=== PATIENT | female | born 1955 | race Caucasian/White ===

== ENCOUNTER 2016-06-28 12:06 | Inpatient (IN) | payer MEDICARE, OTHER ==
[~2016-06-28] VITALS: Ht 160 cm; Wt 84.0 kg
[~2016-06-28 12:06] MED LIST: ASPI81TA3 PO; CYCL-319 PO; HYDR-3498 PO; HYDR25SU23 PR; LORA-408 PO; LORA-52 PO; METR500T14 PO; OLAN20TA3 PO; OMEP20CA16 PO; RISP3TAB25 PO; SUCR1TAB56 PO; UDTYLC PO; VALP250C44 PO; ZOLP10TA PO
[2016-06-28] MEDS ORDERED: KETOROLAC 60 MG INJ IM STA (12:21)
[2016-06-28] MEDS ORDERED: ACET-2047 PO (12:43)
[2016-06-28] MEDS ORDERED: CLOT30CR35 TOP (12:44)
[2016-06-28] MEDS ORDERED: ASCO500C7 PO (12:45)
[2016-06-28] MEDS ORDERED: CALC-74 PO (12:45)
[2016-06-28] MEDS ORDERED: LACT20SO2 PO (12:47)
[2016-06-28] MEDS ORDERED: FLUO60OI5 TOP (12:48)
[2016-06-28] MEDS ORDERED: ACETAMINOPHEN 325 MG TAB PO PRN ×3 (13:00→16:30)
[2016-06-28] MEDS ORDERED: KETOROLAC 30 MG INJ IV PRN (13:00)
[2016-06-28] MEDS ORDERED: ONDANSETRON 4 MG INJ IV PRN ×2 (13:00→16:30)
[2016-06-28 13:33] LABS: BASOPHILS % 0.4 % (0.0-2.0); EOSINOPHILS # 0.2 10^3/ul (0.0-0.5); EOSINOPHILS % 1.7 % (0.0-7.0); HEMATOCRIT 38.6 % (37.0-47.0); LYMPHOCYTES # 2.3 10^3/ul (0.8-2.9); LYMPHOCYTES % 22.9 % (15.0-51.0); MEAN CORPUSCULAR HGB CONC 33.7 g/dl (32.0-37.0); MEAN PLATELET VOLUME 7.4 fl (7.4-10.4); MONOCYTE # 0.9 10^3/ul (0.3-0.9); NEUTROPHIL # 6.6 10^3/ul (1.6-7.5); PLATELET COUNT 348 10^3/UL (140-440); RED BLOOD COUNT 4.34 10^6/ul (4.20-5.40); RED CELL DISTRIBUTION WIDTH 13.1 % (11.5-14.5); UNCORRECTED WBC 9.9 10^3/ul (4.8-10.8); WHITE BLOOD COUNT 9.9 10^3/ul (4.8-10.8)
--- NOTE | 2016-06-28 13:33 | RADRPT ---
PROCEDURE: XR right knee. CLINICAL INDICATION: Knee pain TECHNIQUE: Three views are available for review. COMPARISON: None available FINDINGS: There is mild osteoarthrosis involving the patellofemoral compartment. This is associated with osteo phytosis. The osseous structures are otherwise normal in mineralization, architecture and alignment. No fract ures are identified. No osseous lesions are identified. The soft tissues are unremarkable. IMPRESSION: Mild osteoarthrosis involving the patellofemoral compartment. RPTAT: [facility] .Sukhjinder Santana MD, MD Date Time Electronically viewed and signed by .Sukhjinder Santana MD, on 06/28/2016 13:32 .B/
[2016-06-28 13:34] LABS: CONDITION 1; POTASSIUM 4.3 mmol/L (3.5-5.1)
[2016-06-28 13:35] LABS: PROTIME 13.2 Sec (12.2-14.2)
[2016-06-28 13:36] LABS: BILIRUBIN,INDIRECT 0.1 mg/dl (0-1.1); BILIRUBIN,TOTAL 0.1 mg/dl (0.2-1.3); CREATININE 0.58 mg/dl (0.44-1.00); PARTIAL THROMBOPLASTIN TIME 36.5 Sec (25.0-35.0)
[2016-06-28 13:37] LABS: ALBUMIN/GLOBULIN RATIO 1.14; CALCIUM 10.2 mg/dl (8.4-10.2); TOTAL PROTEIN 7.5 g/dl (6.1-8.1)
[2016-06-28 14:09] VITALS: TEMP 98.1
[2016-06-28 15:00] VITALS: BP 134/86; PULSE 86; RESP 16; Ht 160 cm; Wt 84.0 kg
[2016-06-28] MEDS ORDERED: DOCUSATE SODIUM 100 MG CAP PO PRN (16:30)
[2016-06-28] MEDS ORDERED: MAGNESIUM HYDROXIDE 30ML CUP PO PRN (16:30)
[2016-06-28] MEDS ORDERED: NACL 0.9% 3 ML SYG IV SCH (16:30)
[2016-06-28] MEDS ORDERED: ZOLPIDEM 5 MG TAB PO PRN (16:30)
--- NOTE | 2016-06-28 16:59 | ERA ---
ER Documentation Chief Complaint Date/Time DATE: 06/28/16 TIME: 16:53 Chief Complaint weakness sent by dr alexandre for eval HPI 60-year-old female with a history of bipolar disorder and arthritis sent by Dr. Alexandre for evaluation of right knee pain. Patient lives at a shelter home and she has been unable to walk secondary to her knee pain for several days. She even had to urinate in her bed because she could not walk. At her shelter home, there is no [place] [facility] and they are unable to take care of her. About 1 week ago, she was doing a lot of walking after which her right knee pain started. She has also noticed some swelling. No numbness or tingling in her right lower extremity. No associated fevers or chills. No active hallucinations or suicidal or homicidal ideations ROS All systems reviewed and are negative except as per history of present illness. Medications Home Meds Reported Medications Fluocinonide* (Fluocinonide* Oint) 0.05%-60 Gm Oint..gm., 1 APPLIC TOP DAILY, EA 06/28/16 Lactulose* (Lactulose*) 20 Gm/30 Ml Solution, 20 GM PO BID, ML 06/28/16 Calcium Carbonate-Vit D3-Minerals (Calcium 600 + D + Minerals) 1 Each Tablet, 1 TAB PO BID, TAB 06/28/16 Ascorbic Acid* (Vitamin C*) 500 Mg Capsule.sa, 500 MG PO BID, CAP 06/28/16 Clotrimazole* (Lotrimin*) 1%-30 Gm Cream..g., 1 APPLIC TOP QAM, TUB 06/28/16 Acetaminophen* (Acetaminophen*) 650 Mg Tablet, 650 MG PO Q6H Y for PAIN AND OR ELEVATED TEMP, #30 TAB 06/28/16 Sucralfate* (Carafate*) 1 Gm Tab, 1 GM PO AC MEALS, TAB 03/06/15 Aspirin* (Aspirin* Chew) 81 Mg Tab.chew, 81 MG PO DAILY, TAB.CHEW 03/06/15 Zolpidem Tartrate* (Ambien*) 10 Mg Tablet, 10 MG PO QHS 03/22/12 Loratadine (Alavert) 10 Mg Tablet, 10 MG PO DAILY 03/22/12 Risperidone* (Risperdal*) 3 Mg Tablet, 3 MG PO BID 03/22/12 Olanzapine* (Zyprexa*) 20 Mg Tablet, 20 MG PO QHS 03/22/12 Valproic Acid* (Depakene*) 250 Mg Capsr, 250 MG PO BID 03/22/12 Omeprazole* (Omeprazole*) 20 Mg Capsule.dr, 20 MG PO DAILY 03/22/12 Lorazepam (Ativan) 1 Mg Tablet, 1 MG PO BID 03/22/12 Discontinued Scripts Metronidazole* (Flagyl*) 15 Mg/Ml (Compounded) Susp, 500 MG PO Q8 for 5 Days, BOTTLE Prov:BK ROMERO DO 04/22/16 Hydrocortisone Acetate (Anusol-Hc) 25 Mg Supp.rect, 25 MG NH BID Y for PAIN, # 14 SUPP.RECT Prov:BK ROMERO DO 04/22/16 Acetaminophen-Codeine* (Tylenol-Codeine* Liq) [id number] Elix, 5 ML PO Q6H Y for PAIN, #4 OZ Prov:BEAU MODI 03/06/15 Cyclobenzaprine Hcl* (Cyclobenzaprine Hcl*) 10 Mg Tablet, 10 MG PO TID, #10 TAB Prov:BEAU MODI 03/06/15 Hydrocodone Bit-Acetaminophen* (Stopover*) 5-325 Mg Tab, 1 TAB PO Q6 Y for PAIN, # 20 TAB Prov:BEAU MODI 03/06/15 Allergies Allergies: Coded Allergies: Penicillins (Verified Allergy, Mild, SICK, 06/28/16) Sulfa (Sulfonamide Antibiotics) (Verified Allergy, Mild, RASH, 06/28/16) Uncoded Allergies: "TOILETRIES" (Allergy, Unknown, 01/02/14) CHOCOLATE (Allergy, Unknown, RASH, 01/02/14) COSMETICS (Allergy, Unknown, 01/02/14) PEANUTS (Allergy, Unknown, RASH, 01/02/14) SHRIMP (Allergy, Unknown, RASH, 01/02/14) STRAWBERRIES (Allergy, Unknown, RASH, 01/02/14) PMhx/Soc History of Surgery: Yes Anesthesia Reaction: No Hx Neurological Disorder: No Hx Cardiac Disorders: Yes (CHEST PAIN) Hx Psychiatric Problems: No Hx Miscellaneous Medical Probl: Yes (CHOLECYSTECTOMY, TUBAL LIGATION) Hx Alcohol Use: No Hx Substance Use: No Hx Tobacco Use: No Smoking Status: Never smoker FmHx Family History: No diabetes Physical Exam Vitals Vital Signs Date Time Temp Pulse Resp B/P Pulse Ox O2 Delivery O2 Flow Rate FiO2 06/28/16 14:09 98.1 86 16 127/54 100 Room Air 06/28/16 13:16 98.0 87 18 138/78 97 Physical Exam Const: Well-appearing, well-nourished, no apparent distress, nontoxic Head: Atraumatic Eyes: Normal Conjunctiva ENT: Normal External Ears, Nose and Mouth. Neck: Full range of motion. No meningismus. Resp: Clear to auscultation bilaterally Cardio: Regular rate and rhythm, no murmurs Abd: Soft, non tender, non distended. Normal bowel sounds Skin: No petechiae or rashes Back: No midline or flank tenderness Ext: Lower Extremity - bilateral: No edema, no deformities Right lower extremity: Skin: No laceration Compartments: Soft Motor: Full active range of motion hip/knee/ankle/foot without pain Sensation: Intact to light touch FDWS/MF/LF/P surfaces. Bones: Nontender pelvis/knee/proximal tibia/ malleoli/foot Joints: Right knee effusion, no overlying erythema or warmth Pulses/Perfusion: 2+ DP, Capillary refill < 2 seconds Neur: Awake and alert and oriented 3, strength and sensations intact in all 4 extremities Psych: Normal Mood and Affect Result Diagram: 06/28/16 1315 06/28/16 1315 Results 24 hrs Laboratory Tests Test 06/28/16 13:15 Activated Partial Thromboplast Time 36.5Sec Alanine Aminotransferase (ALT/SGPT) 16IU/L Albumin 4.0g/dl Albumin/Globulin Ratio 1.14 Alkaline Phosphatase 77IU/L Anion Gap 18 Aspartate Amino Transf (AST/SGOT) 17IU/L Basophils # 0.010^3/ul Basophils % 0.4% Blood Urea Nitrogen 12mg/dl Calcium Level 10.2mg/dl Carbon Dioxide Level 30mmol/L Chloride Level 101mmol/L Creatinine 0.58mg/dl Direct Bilirubin 0.00mg/dl Eosinophils # 0.210^3/ul Eosinophils % 1.7% Globulin 3.50g/dl Glucose Level 91mg/dl Hematocrit 38.6% Hemoglobin 13.0g/dl INR International Normalized Ratio 1.00 Indirect Bilirubin 0.1mg/dl Lymphocytes # 2.310^3/ul Lymphocytes % 22.9% Mean Corpuscular Hemoglobin 30.0pg Mean Corpuscular Hemoglobin Concent 33.7g/dl Mean Corpuscular Volume 89.0fl Mean Platelet Volume 7.4fl Monocytes # 0.910^3/ul Monocytes % 9.0% Neutrophils # 6.610^3/ul Neutrophils % 66.0% Nucleated Red Blood Cells # 0.010^3/ul Nucleated Red Blood Cells % 0.0/100WBC Platelet Count 06305^3/UL Potassium Level 4.3mmol/L Prothrombin Time 13.2Sec Prothrombin Time Ratio 1.0 Red Blood Count 4.3410^6/ul Red Cell Distribution Width 13.1% Sodium Level 145mmol/L Total Bilirubin 0.1mg/dl Total Protein 7.5g/dl White Blood Count 9.910^3/ul Current Medications Medications (Trade) Dose Ordered Sig/Jose Route PRN Reason Start Time Stop Time Status Last Admin Dose Admin Ketorolac Tromethamine (Toradol) 60 mg ONCE STAT IM 06/28/16 12:21 06/28/16 12:23 DC 06/28/16 13:14 Ketorolac Tromethamine (Toradol) 30 mg ER BRIDGE PRN IV PAIN 06/28/16 13:00 06/29/16 12:59 Ondansetron HCl (Zofran Inj) 4 mg BRIDGE ORDER PRN IV NAUSEA AND/OR VOMITING 06/28/16 13:00 06/29/16 12:59 Acetaminophen (Tylenol Tab) 650 mg ER BRIDGE PRN PO MILD PAIN/FEVER 06/28/16 13:00 06/29/16 12:59 Procedures/MDM Patient is presenting with right knee pain and difficulty walking secondary to her pain. Where she is currently living they are unable to take care of her and the patient does not feel she could take care of herself. Her vitals are stable and I do not suspect septic joint. Her knee x-ray showed Mild osteoarthrosis involving the patellofemoral compartment. Toradol was given for pain. Basic labs were drawn and unremarkable. I spoke with Dr. Alexandre, her primary care physician, who would like to admit her for further workup by orthopedics and possible placement in rehab. Departure Diagnosis: Primary Impression: Pain and swelling of right knee Condition: Stable BING GARCIA MD Jun 28, 2016 16:59
--- NOTE | 2016-06-28 17:19 | HP ---
DATE OF ADMISSION: 06/28/2016 REASON FOR ADMISSION: Intractable right knee pain, difficult to ambulate for 1 week, acute psychosi s. HISTORY OF PRESENT ILLNESS: The patient is a 60-year-old female with history of bipolar d isorder, paranoia, angina, obesity, and gastritis who currently resides at [facility]. The patient stated that in the past week she has been having difficulty with ambulatio n as she has been experiencing severe right knee pain. The patient's pain has severe enough for her to request to go to the ER. Upon evaluation in the ER, the patient underwent an x-ray of the right knee which showed mild osteoarthrosis involving the patellofemoral compartment. She was noticed to have swelling of the knee as well. In addition, the facility reported the patient was not acting l kim herself recently, concerning for worsening or decompensating psychiatric disorder. Ultimately, it was decided to admit the patient for further evaluation and control her pain. The patient otherw ise denies any headaches or blurry vision. She denies any chest pain or shortness of breath. Denie s any one-sided weakness. Denies any numbness. She did report weight loss of about 50 pounds, but she says she has been trying to lose weight to look better. Overall, the patient may be an unreliab le historian, but she was able to answer my questions. PAST MEDICAL HISTORY: Bipolar disorder, paranoia, questionable paranoid schizophrenia, angina, adolph ritis. ALLERGIES: 1. PENICILLIN. 2. SULFA. CAUSES A RASH. SOCIAL HISTORY: The patient is single. She has no kids. FAMILY HISTORY: She was adopted when she was very young, when she was a baby, so she talked to me a bout her adopted parents who 8 years ago, a few days apart. She does not know her biological p arents. SURGICAL HISTORY: Includes hemorrhoidectomy, hernia repair surgery, cholecystectomy, tubal ligation , and . She was briefly on hemodialysis and had an AV shunt for 2 months when she was 19 ye ars old. SOCIAL HISTORY: Alcohol denies, only in her teens. Tobacco and IV drug abuse denies. SCREENING: The patient's last colonoscopy was about 2 years ago which was normal. Mammogram: She does that yearly. MEDICATIONS: The patient's medications include the followin. Loratadine 10 mg daily. 2. Tylenol 650 q. 6 p.r.n. 3. Aspirin 81 mg daily. 4. Ativan 1 mg b.i.d. 5. Zyprexa 20 mg at bedtime. 6. Risperdal 3 mg b.i.d. 7. Depakote 250 b.i.d. 8. Ambien 10 mg at bedtime. 9. Calcium plus D 600 b.i.d. 10. Lactulose b.i.d. 11. Omeprazole 20 mg daily. 12. Carafate 1 gram q. a.c. meals. 13. cream as directed. 14. Fluocinonide cream topically as directed. 15. Vitamin C 500 mg b.i.d. PHYSICAL EXAMINATION: VITAL SIGNS: Temperature is 98.1, pulse 86, respirations 16, blood pressure 127/54, saturation is 1 00% on room air. GENERAL: The patient is in no acute distress, obese. The patient is slightly pale. CARDIOVASCULAR: S1 and S2, regular rate. LUNGS: Clear bilaterally. ABDOMEN: Soft, nontender. EXTREMITIES: Showed large legs. There is definitely some swelling on the right knee, slight decrea sed range of motion secondary to pain, able to flex it up to 75 degrees, and then the pain is quite severe in the right knee. Slight guarding when I tried to move her right knee. LABORATORY DATA: White count is 9.9, hemoglobin 13, hematocrit 39, platelet count 348, neutrophils 66%, lymphocytes 23%. Chemistry: Sodium is 145, potassium 4.3, chloride 101, bicarbonate 30, BUN i s 12, creatinine 0.58, glucose of 91, AST 17, ALT 16, alkaline phosphatase 77, albumin 4.0. INR is 1.0. IMAGING: A right knee x-ray shows only mild osteoarthrosis involving the patellofemoral compartment . EKG: Not done. ASSESSMENT AND PLAN: This is a very unfortunate 60-year-old obese female with history of extensive psychiatric disorder who presents with right knee pain, difficult to ambulate, and also ch kell in mental condition. 1. Right knee pain, questionable osteoarthritis with questionable exacerbation. Pain medication wi ll be provided. We will consult orthopedics for possible steroid injection if needed. We will prov teagan with physical therapy. 2. Acute exacerbation of psychiatric disorder. Continue all psych meds. We will obtain a UA and u rine culture to rule out infectious process. Monitor patient's mood. 3. History of angina. We will obtain a baseline EKG. Currently, chest pain-free. The patient is on aspirin for cardiac protection. 4. The patient will be placed on deep vein thrombosis prophylaxis and gastrointestinal prophylaxis. 5. Age appropriate cancer screening. It seems like the patient is up to date. We will follow. Dictated By: CARTER WILLETT/MENDEL Conf#: [id number] DID#: [id number]
[2016-06-28] MEDS: SUCRALFATE 1 GM TAB PO SCH (17:29)
[2016-06-28] MEDS ORDERED: BETAMET NA PHOS/AC(6 MG/ML) 5ML INJ IM ONE (18:30)
[2016-06-28] MEDS ORDERED: BUPIVACAINE 0.5% (MPF) 10 ML VIAL INJ ONE (18:30)
[2016-06-28 19:29] VITALS: BP 144/67; RESP 20
[2016-06-28] MEDS: VALPROIC ACID 250 MG CAP PO SCH ×2 (21:00→21:03)
[2016-06-28] MEDS: RISPERIDONE 1 MG TAB PO SCH (21:03)
[2016-06-28] MEDS: ASCORBIC ACID 500 MG TAB PO SCH (21:03)
[2016-06-28] MEDS: LORAZEPAM 1 MG TAB PO SCH (21:03)
[2016-06-28] MEDS: OLANZAPINE 5 MG TAB PO SCH (21:04)
[2016-06-28] MEDS: VALPROIC ACID LIQUID CUP 250 MG/5 ML CUP PO SCH (22:40)
[2016-06-28] MEDS: morphine 2 MG INJ IV PRN (23:07)
[2016-06-29 01:48] LABS: ADD UMIC YES; URINE BILIRUBIN (Dip) NEGATIVE (NEGATIVE); URINE BLOOD (Dip) NEGATIVE (NEGATIVE); URINE COLOR LT. YELLOW (YELLOW); URINE GLUCOSE (Dip) NEGATIVE (NEGATIVE); URINE KETONES (Dip) NEGATIVE (NEGATIVE); URINE LEUKOCYTE ESTERASE (Dip) TRACE (NEGATIVE); URINE NITRITE (Dip) NEGATIVE (NEGATIVE); URINE TOTAL PROTEIN (Dip) NEGATIVE (NEGATIVE); URINE UROBILINOGEN (Dip) 0.2 E.U./dL (0.1-1.0)
[2016-06-29 02:00] LABS: BACTERIA,URINE FEW; SQUAMOUS EPITHELIAL CELL,UR FEW; URINE RBCS 0-2 /HPF (0)
[2016-06-29 06:41] LABS: ALBUMIN 3.3 g/dl (3.3-4.9)
[2016-06-29 06:42] LABS: POTASSIUM 4.1 mmol/L (3.5-5.1)
[2016-06-29 06:44] LABS: ALBUMIN/GLOBULIN RATIO 1.1; BILIRUBIN,INDIRECT 0.1 mg/dl (0-1.1); BILIRUBIN,TOTAL 0.1 mg/dl (0.2-1.3); CREATININE 0.65 mg/dl (0.44-1.00); TOTAL PROTEIN 6.3 g/dl (6.1-8.1)
[2016-06-29 06:45] LABS: CALCIUM 9.5 mg/dl (8.4-10.2); MAGNESIUM 1.7 mg/dl (1.7-2.5)
[2016-06-29 07:10] LABS: THYROID STIMULATING HORMONE 2.46 MIU/L (0.465-4.680)
[2016-06-29 07:18] LABS: BASOPHIL # 0.1 10^3/ul (0.0-0.1); BASOPHILS % 0.6 % (0.0-2.0); EOSINOPHILS # 0.2 10^3/ul (0.0-0.5); EOSINOPHILS % 2.6 % (0.0-7.0); HEMATOCRIT 32.9 % (37.0-47.0); HEMOGLOBIN 11.3 g/dl (12.0-16.0); LYMPHOCYTES % 34.5 % (15.0-51.0); MEAN CORPUSCULAR HEMOGLOBIN 30.5 pg (29.0-33.0); MEAN CORPUSCULAR HGB CONC 34.2 g/dl (32.0-37.0); MEAN CORPUSCULAR VOLUME 89.2 fl (82.0-101.0); MEAN PLATELET VOLUME 7.5 fl (7.4-10.4); MONOCYTE # 0.9 10^3/ul (0.3-0.9); MONOCYTES % 10.4 % (0.0-11.0); NEUTROPHIL # 4.5 10^3/ul (1.6-7.5); NEUTROPHILS % 51.9 % (39.0-77.0); PLATELET COUNT 339 10^3/UL (140-440); RED BLOOD COUNT 3.69 10^6/ul (4.20-5.40); RED CELL DISTRIBUTION WIDTH 13.4 % (11.5-14.5); UNCORRECTED WBC 8.6 10^3/ul (4.8-10.8); WHITE BLOOD COUNT 8.6 10^3/ul (4.8-10.8)
--- NOTE | 2016-06-29 07:22 | RADRPT ---
PROCEDURE: XR Chest. CLINICAL INDICATION: Weight loss TECHNIQUE: An AP view of the chest was obtained. COMPARISON: Chest x-ray dated 01/02/2014 FINDINGS: There is prominence of the interstitial markings. No pleural effusion or pneumothorax is seen. Th e cardiomediastinal silhouette is mildly enlarged . The osseous structures demonstrate senescent changes. IMPRESSION: 1. Mild prominence of the interstitial markings, may reflect mild underlying interstitial edema or chronic lung changes. 2. Mild cardiomegaly. RPTAT: HH .Tanesha Queen MD, MD Date Time Electronically viewed and signed by .Tanesha Queen MD, MD on 06/29/2016 07:22 .G/
[2016-06-29] MEDS: PANTOPRAZOLE (EC) 40 MG TAB PO SCH (07:52)
[2016-06-29 08:00] LABS: CONDITION 1
[2016-06-29 08:07] VITALS: BP 123/57; RESP 16
[2016-06-29] MEDS: VALPROIC ACID LIQUID CUP 250 MG/5 ML CUP PO SCH ×2 (08:56→21:02)
[2016-06-29] MEDS: ASPIRIN 81 MG TAB PO SCH (08:57)
[2016-06-29] MEDS: LORATADINE 10 MG TAB PO SCH (08:57)
[2016-06-29] MEDS: RISPERIDONE 1 MG TAB PO SCH ×2 (08:57→21:01)
[2016-06-29] MEDS: ASCORBIC ACID 500 MG TAB PO SCH ×2 (08:58→21:01)
[2016-06-29] MEDS: LORAZEPAM 1 MG TAB PO SCH ×2 (08:58→21:01)
[2016-06-29] MEDS: SUCRALFATE 1 GM TAB PO SCH ×3 (08:58→17:34)
[2016-06-29] MEDS: ENOXAPARIN 40 MG/0.4 ML SYG SC SCH (09:00)
[2016-06-29] MEDS: HYDROCODONE/APAP (5/325) TAB PO PRN ×2 (09:46→22:37)
[2016-06-29] MEDS ORDERED: PROPYLENE GLYCOL/PEG 15 ML OPH BOTH EYES PRN (11:30)
--- NOTE | 2016-06-29 11:48 | RADRPT ---
Vent Rate: 80 bpm RR Interval: 0 msec OH Interval: 174 msec QRS Duration: 138 msec QT Interval: 418 msec QTC Interval: 482 msec P-R-T [place]: 64 - 70 - 43 degrees Normal sinus rhythm Right bundle branch block Abnormal ECG Electronically Signed By: Alonzo Whitehead [id number]
[2016-06-29] MEDS ORDERED: BIOTENE MOUTH SPRAY PO PRN (13:00)
--- NOTE | 2016-06-29 13:19 | PN ---
DATE: 06/29/2016 SUBJECTIVE: Patient seen, appears anxious, hyperverbal, asking for dry mouth and dry eye drops. Sh lynne is still complaining of pain in the right knee. She says now the pain also is in the left knee, b ut not as severe. I appreciate Dr. Polanco's input as patient to undergo intra-articular injection of s teroids. The patient is concerned about her ability to ambulate because of pain. PHYSICAL EXAMINATION: VITAL SIGNS: Temperature 97.7, pulse 71, respirations 16, blood pressure 123/57, saturation 92% to 96% on room air. GENERAL: The patient is in no acute distress. HEENT: Normocephalic, atraumatic, pale. Dry mucous membranes. CARDIOVASCULAR: S1, S2, regular rate. LUNGS: Clear. ABDOMEN: Soft, nontender. EXTREMITIES: Positive pain upon flexion of the right knee, mild discomfort upon flexion of the left knee. Slight swelling of the right knee compared to the left. LABORATORY DATA: Sodium is 137, potassium 4.1, chloride 97, bicarbonate 30, BUN is 18, creatinine 0 .65, glucose of 86. LFTs are all normal. B12 of 47. TSH 2.46. White count is 8.6, hemoglobin daniel t down to 11.3, hematocrit 33, platelets 339, neutrophils 52%, lymphocytes 35%. INR is 1.0, trace l eukocyte esterase was noted WBC 0 to 2. Chest x-ray shows mild prominence of interstitial markings may reflect interstitial edema, paralegal instructor nadine lung changes versus mild cardiomegaly. Knee x-ray shows mild osteoarthritis involving the gallo lofemoral compartment. MEDICATIONS: 1. Aspirin 81 mg daily. 2. Claritin 10 mg daily. 3. Lovenox 40 mg subq every day. 4. Protonix 40 mg daily. 5. Depakote 250 b.i.d. 6. Vitamin C 500 mg b.i.d. 7. Ativan 1 mg t.i.d. 8. Zyprexa 20 at bedtime. 9. Risperdal 2 mg b.i.d. 10. Carafate 1 gram q.a.c. meals. 11. Zofran p.r.n. 12. Tylenol p.r.n. 13. [place] p.r.n. 14. Morphine p.r.n. 15. Colace p.r.n. 21. Milk of magnesia p.r.n. 22. Ambien p.r.n. ASSESSMENT AND PLAN: This is a 60-year-old obese female with history of extensive psychia tric disorder, presents with right knee pain, difficult to ambulate also increase mild confusion an d increased anxiety. 1. Right knee pain, likely from osteoarthritis, possible exacerbation. Dr. Polanco was consulted. In the meantime, continue pain medication. The patient likely to undergo steroid injection. May benef it from a brace as well. Physical therapy to evaluate. 2. Acute exacerbation of psychiatric disorder, on the above medications. Definitely would like her to see a psychiatrist. Urinalysis overall unremarkable. Continue to monitor mood. 3. History of angina. EKG shows normal sinus rhythm with right bundle branch block at 80 beats a m inute. Would continue with aspiration. The patient is chest pain free. We will monitor. 4. Continue deep vein thrombosis prophylaxis and gastrointestinal prophylaxis. 5. We will follow. Dictated By: CARTER WILLETT/MENDEL Conf#: [id number] DID#: [id number]
--- NOTE | 2016-06-29 15:49 | CONS ---
DATE OF ADMISSION: 06/28/2016 DATE OF CONSULTATION: 06/29/2016 TYPE OF CONSULTATION: Orthopedic surgical. HISTORY OF PRESENT ILLNESS: The patient is a 60-year-old female, a resident of a [facility] living facility with a known history of bipolar disorder and paranoid schizophrenia who was admit jojo on 06/28/2016 when she was brought into the emergency room complaining of painful limit of motio n involving her right knee. On inquiring, she developed pain and limit of motion of right knee after excessive walk for hospital visit about 2 weeks ago. She claims that she was walking about a mile each time on several occasio ns for the hospital visit when she developed this pain. On further inquiring, she claims that she h as been having some pain involving various parts of her body including right knee starting from abou t 2 years ago. PHYSICAL EXAMINATION: My examination revealed a 60-year-old female who is somewhat obese. There wa s a mild effusion involving the right knee, and there was a mild limit of motion with pain during th e attempted range of motion. She was having tenderness along the joint line and peripatellar area. There were no gross instabilities. There were no signs of any pyogenic process. IMAGING: X-rays of the right knee revealed the presence of mild degenerative changes involving all 3 compartments including patellofemoral joint. DIAGNOSTIC IMPRESSION: Degenerative osteoarthritis of the right knee, mild, with symptomatic exacer bation following excessive walking. RECOMMENDATIONS FOR MANAGEMENT: 1. Trial of steroid injection into the right knee, and this was done at the end of my consultation. 2. Ambulation as tolerated with weightbearing as tolerated. 3. Okay to be discharged from orthopedic surgical point of view if there is symptomatic relief foll owing the intra-articular injection of steroid. Dictated By: ROSALBA CHADWICK/MENDEL Conf#: [id number] DID#: [id number]
[2016-06-29 20:05] VITALS: BP 135/77; RESP 20
[2016-06-29] MEDS: OLANZAPINE 5 MG TAB PO SCH (21:02)
[2016-06-30] MEDS: HYDROCODONE/APAP (5/325) TAB PO PRN ×3 (05:48→23:21)
[2016-06-30] MEDS: PANTOPRAZOLE (EC) 40 MG TAB PO SCH (05:48)
[2016-06-30 07:29] VITALS: BP 145/58; RESP 18
[2016-06-30] MEDS: VALPROIC ACID LIQUID CUP 250 MG/5 ML CUP PO SCH ×2 (08:45→21:16)
[2016-06-30] MEDS: SUCRALFATE 1 GM TAB PO SCH ×3 (08:45→16:56)
[2016-06-30] MEDS: ASPIRIN 81 MG TAB PO SCH (08:45)
[2016-06-30] MEDS: LORATADINE 10 MG TAB PO SCH (08:45)
[2016-06-30] MEDS: ASCORBIC ACID 500 MG TAB PO SCH ×2 (08:45→21:16)
[2016-06-30] MEDS: LORAZEPAM 1 MG TAB PO SCH ×2 (08:45→21:16)
[2016-06-30] MEDS: RISPERIDONE 1 MG TAB PO SCH ×2 (08:45→21:16)
[2016-06-30] MEDS: ENOXAPARIN 40 MG/0.4 ML SYG SC SCH (08:49)
--- NOTE | 2016-06-30 14:13 | PN ---
DATE: 06/30/2016 SUBJECTIVE: Patient seen, doing better after she had injection to the right knee yesterday by Dr. Weston Polanco. She states the swelling is subsiding and she is now able to go the bathroom. PHYSICAL EXAMINATION: VITAL SIGNS: Temperature 97.2, heart rate is slightly high at 102, respirations 18, blood pressure 145/58, saturation 92%. GENERAL: No acute distress. HEENT: Normocephalic, atraumatic. CARDIOVASCULAR: Positive S1 and S2, regular rate. LUNGS: Clear. ABDOMEN: Soft, nontender. EXTREMITIES: Increased range of motion to the right knee and the pain is better. LABORATORY DATA: White count is 8.6, hemoglobin 11.3, hematocrit 33, that was yesterday. Urine cul ture shows mixed gram-positive organism greater than 100,000. MEDICATIONS: Include: 1. Systane eyedrops as directed for dry eyes. 2. Aspirin 81 mg daily. 3. Claritin 10 mg daily. 4. Lovenox 40 mg subcutaneous daily. 5. Protonix 40 mg daily. 6. Depakote 250 b.i.d. 7. Vitamin C 500 mg b.i.d. 8. Ativan 1 mg b.i.d. 9. Zyprexa 20 at bedtime. 10. Risperdal 3 mg b.i.d. 11. Carafate 1 gram q.a.c. meals. 12. Zofran p.r.n. 13. Tylenol p.r.n. 14. [place] p.r.n. 15. Morphine p.r.n. 16. Colace p.r.n. 17. Milk of magnesia. 18. Ambien p.r.n. ASSESSMENT AND PLAN: This is a 60-year-old obese female with history of extensive psychiatric disorder, present s with right knee pain, difficult to ambulate, also increased confusion and anxiety. 1. Right knee pain, likely exacerbation of her arthritis. Responded well to steroid injection. Wo uld advise her to take it easy with long walks. She will benefit from physical therapy and weight l oss, and possible knee brace. 2. Psychiatric disorder with mild exacerbation. The patient is very hyperverbal, speaks tangential ly about many issues which are not related to my questioning. Continue above psych medications. We will refer her to an outpatient psychiatrist to assist and adjust her medications. 3. History of angina, chest pain free. 4. Continue deep vein thrombosis prophylaxis and gastrointestinal prophylaxis. 5. Disposition in the a.m. to group home facility for physical therapy and psychiatry followup . We will follow. Dictated By: CARTER WILLETT/MENDEL Conf#: [id number] DID#: [id number]
[2016-06-30 19:25] VITALS: BP 131/61; RESP 20
[2016-06-30] MEDS: OLANZAPINE 5 MG TAB PO SCH (21:16)
[2016-07-01] MEDS: morphine 2 MG INJ IV PRN (02:27)
[2016-07-01] MEDS: PANTOPRAZOLE (EC) 40 MG TAB PO SCH (05:23)
[2016-07-01 07:46] VITALS: BP 124/67; RESP 18
[2016-07-01] MEDS: SUCRALFATE 1 GM TAB PO SCH ×2 (08:05→13:02)
[2016-07-01] MEDS: ASPIRIN 81 MG TAB PO SCH (08:08)
[2016-07-01] MEDS: ASCORBIC ACID 500 MG TAB PO SCH (08:08)
[2016-07-01] MEDS: LORATADINE 10 MG TAB PO SCH (08:08)
[2016-07-01] MEDS: VALPROIC ACID LIQUID CUP 250 MG/5 ML CUP PO SCH (08:08)
[2016-07-01] MEDS: RISPERIDONE 1 MG TAB PO SCH (08:09)
[2016-07-01] MEDS: LORAZEPAM 1 MG TAB PO SCH (08:09)
[2016-07-01] MEDS: ENOXAPARIN 40 MG/0.4 ML SYG SC SCH (08:13)
--- NOTE | 2016-07-01 10:37 | PDOCDIS ---
Discharge Instructions CONDITION Patient Condition: Stable HOME CARE INSTRUCTIONS: Special Diet: Regular Diet ACTIVITY: Activity Restrictions: Slowly Increase Activity FOLLOW UP/APPOINTMENTS Appointments see reconciliation, discharge to [facility], psychiatry consult at the SNF, physical therapy at SNF. CARTER ORTIZ MD Jul 01, 2016 10:37
--- NOTE | 2016-07-02 08:16 | DS ---
DATE OF ADMISSION: 06/28/2016 DATE OF DISCHARGE: 07/01/2016 REASON FOR ADMISSION: Intractable right knee pain, difficult to ambulate, psychosis. HOSPITAL COURSE: The patient is a 60-year-old obese female with history of bipolar disord er, paranoia, angina, obesity, gastritis who resides at [facility]. In th e past week she has been having difficulty to ambulate. She complained of severe right knee pain. The people at the facility felt that the patient could not care for herself and she needs to be eval uated. She was sent to the ER. In addition, the facility stated that the patient is more confused and not herself. Upon evaluation in the emergency department patient underwent diagnostic tests inc luding an x-ray of the right knee which confirmed osteoarthritis involving the patellofemoral compar tment. In addition, the patient was somewhat confused further care. Upon admission, I consul jojo Polanco, the orthopedic doctor, who will perform an intrajoint injection of steroids. The patient tolerated the procedure well. She also was seen by the physical therapist. It was felt th at she can walk with a front-wheeled walker after the procedure. The urine shows trace leukocyte es terase and WBC 0 to 2, and urine culture shows mixed organisms, likely contamination, so I did not s tart her on antibiotics. The patient is very hyperverbal, very anxious, definitely needs to be seen by the psychiatrist, which will refer as an outpatient. The patient is very anxious about her abil ity to care for herself, so she will be discharged today to the retirement facility until she r egains confidence, she gets physical therapy and sees the psychiatrist. DISCHARGE MEDICATIONS: She will be discharged with the following medications: 1. Tylenol 650 q. 6 p.r.n. for pain. 2. Vitamin C 500 mg b.i.d. 3. Aspirin 81 mg daily. 4. Colace 100 mg q.12 p.r.n. 5. [place] 5/325 q. 6 p.r.n. for moderate pain. 6. Claritin 10 mg daily. 7. Ativan 1 mg b.i.d. 8. Milk of magnesia 30 mL daily as needed. 9. Zyprexa 20 mg at night. 10. Zofran 4 mg p.o. q. 4 p.r.n. for nausea and vomiting. 11. Protonix 40 mg daily. 12. Biotene mouth spray q. 3 p.r.n. 13. Systane ophthalmic p.r.n. for dry eyes. 14. Risperidone 3 mg b.i.d. 15. Carafate 1 g before meals. 16. Depakote 250 b.i.d. 17. Ambien 10 mg at bedtime p.r.n. for insomnia. CONSULTATION: A psychiatry consult. Physical therapy. FINAL DIAGNOSES: 1. Right knee pain/osteoarthritis of the right knee. 2. Acute psychosis with confusion. 3. Bipolar disorder. 4. Obese state, body mass index of 32.8. 5. Rule out urinary tract infection. 6. History of angina. DIET: Low fat, low carb diet is advised with added salt. ACTIVITY: With physical therapy as tolerated. CONDITION ON DISCHARGE: Fair. Dictated By: ACRTER WILLETT/MENDEL Conf#: [id number] DID#: [id number]
== END 2016-07-01 14:53 | DRG 554 ==
LOC: E/R 12:06 → MS2 15:10 → OBSVTOIN 16:38 → MS2 16:38
PROVIDERS: ADMIT Internal Medicine; ATTEND Internal Medicine
PROC: 3E0U33Z Introduction of Anti-inflammatory into Joints, Percutaneous Approach (ICD-10-PCS; principal; 2016-06-28)
DX: M17.11 Unilateral primary osteoarthritis, right knee (principal); N39.0 Urinary tract infection, site not specified; F20.0 Paranoid schizophrenia; F23 Brief psychotic disorder; I45.10 Unspecified right bundle-branch block
CPT/HCPCS: 36415; 71010; 73562; 80053; 80061; 81001; 81003; 82607; 83735; 84100; 84443; 85025; 85610; 85730; 87086; 93005; 96372; 97110; 97116; 97162; 97530; G0378; J0702; J1650; J1885; J2270

== ENCOUNTER 2018-01-11 07:59 | Day surgery (SDC) | END 2018-01-11 13:28 | disposition home or self-care (01) ==

== ENCOUNTER 2018-10-23 08:50 | Day surgery (SDC) | payer MEDICARE, OTHER ==
[~2018-10-23] VITALS: Ht 160 cm; Wt 83.8 kg
[2018-10-23] VITALS (9 sets, daily range): BP systolic 94–184; BP diastolic 50–85; PULSE 71–99; RESP 17–22; Ht 160 cm; Wt 83.8 kg
[~2018-10-23 08:50] MED LIST changes: +ACET-2047 PO; +ASCO500C7 PO; +ASPI-903 PO; -ASPI81TA3 PO; +CALC-74 PO; +CARVEDILOL; +CLOT30CR35 TOP; -CYCL-319 PO; +FLUO60OI TOP; -HYDR-3498 PO; -HYDR25SU23 PR; +IBUPROFEN; +LACT20SO2 PO; +LOSARTAN; -METR500T14 PO; +OTC EYE DROPS; +TRIAMCINOLONE; -UDTYLC PO; +VALP250C3 PO; -VALP250C44 PO
[2018-10-23] MEDS ORDERED: CARV3.1260 PO (11:04)
--- NOTE | 2018-10-23 11:04 | PREAC ---
Date/Time of Note Date/Time of Note DATE: 10/23/18 TIME: 11:04 Anesthesia Eval and Record Evaluation Time Pre-Procedure Interview DATE: 10/23/18 TIME: 11:04 Age 63 Sex female NPO: 8 hrs Preoperative diagnosis diarrhea, ulcerative colitis Planned procedure colonoscopy Past Medical History Past Medical History: Includes Cardio: HTN Musculoskeletal: Osteoarthritis GI: Other (ulcerative colitis) Psych: Bipolar Surgery & Anesthesia Issues No known issue Meds Anticoagulation: No Beta Aleksandar within 24 hr: Yes Reason Beta Aleksandar not given: Bradycarida, Hypotension Reported Medications [Otc Eye Drops] No Conflict Check 01/11/18 [Triamcinolone] No Conflict Check 01/11/18 [Ibuprofen] No Conflict Check 01/11/18 Fluocinonide* (Fluocinonide* Oint) 0.05%-60 Gm Oint..gm., 1 APPLIC TOP DAILY, EA 06/28/16 Lactulose* (Lactulose*) 20 Gm/30 Ml Solution, 20 GM PO BID, ML 06/28/16 Clotrimazole* (Lotrimin*) 1%-30 Gm Cream..g., 1 APPLIC TOP QAM, TUB 06/28/16 Sucralfate* (Carafate*) 1 Gm Tab, 1 GM PO AC MEALS, TAB 03/06/15 Zolpidem Tartrate* (Ambien*) 10 Mg Tablet, 10 MG PO QHS 03/22/12 Loratadine (Alavert) 10 Mg Tablet, 10 MG PO DAILY 03/22/12 Risperidone* (Risperdal*) 3 Mg Tablet, 3 MG PO BID 03/22/12 Olanzapine* (Zyprexa*) 20 Mg Tablet, 20 MG PO QHS 03/22/12 Valproic Acid* (Depakene*) 250 Mg Capsr, 250 MG PO BID 03/22/12 Omeprazole* (Omeprazole*) 20 Mg Capsule.dr, 20 MG PO DAILY 03/22/12 Lorazepam (Ativan) 1 Mg Tablet, 1 MG PO BID 03/22/12 Discontinued Reported Medications [Losartan] No Conflict Check 01/11/18 [Carvedilol] No Conflict Check 01/11/18 Calcium Carbonate-Vit D3-Minerals (Calcium 600 + D + Minerals) 1 Each Tablet, 1 TAB PO BID, TAB 06/28/16 Ascorbic Acid* (Vitamin C*) 500 Mg Capsule.sa, 500 MG PO BID, CAP 06/28/16 Acetaminophen* (Acetaminophen*) 650 Mg Tablet, 650 MG PO Q6H PRN for PAIN AND OR ELEVATED TEMP, #30 TAB 06/28/16 Aspirin* (Aspirin* Chew) 81 Mg Tab.chew, 81 MG PO DAILY, TAB.CHEW 03/06/15 Meds reviewed: Yes Allergies Coded Allergies: Penicillins (Verified Allergy, Mild, SICK, 06/28/16) Sulfa (Sulfonamide Antibiotics) (Verified Allergy, Mild, RASH, 06/28/16) chocolate flavor (Verified Allergy, Unknown, RASH, 06/29/16) peanut (Verified Allergy, Unknown, RASH, 06/29/16) shrimp (Verified Allergy, Unknown, RASH, 06/29/16) strawberry (Verified Allergy, Unknown, RASH, 06/29/16) Uncoded Allergies: "TOILETRIES" (Allergy, Unknown, 01/02/14) COSMETICS (Allergy, Unknown, 01/02/14) Allergies Reviewed: Yes Labs/Studies Labs Reviewed: Reviewed by anesthesiologist test: N/A Pre-procedure Exam Airway: Adequate mouth opening, Adequate thyromental dist Mallampati: Mallampati II Teeth: Normal Lung: Normal Heart: Normal ASA Physical Status ASA physical status: 2 Emergency: None Planned Anesthetic General/MAC: Mask Planned Pain Management Parenteral pain med Pre-operative Attestations Prior to commencing anesthesia and surgery, the patient was re-evaluated, there was verification of: *The patient's identity *The results of appropriate recent lab work and preoperative vital signs *The above evaluation not changing prior to induction *Anesthetic plan, risk benefits, alternative and complications discussed with patient/family; questions answered; patient/family understands, accepts and wishes to proceed. GRIFFIN VALDES MD Oct 23, 2018 11:04
[2018-10-23] MEDS ORDERED: LIDOCAINE 2% (SDV) 5 ML INJ ONE (11:23)
[2018-10-23] MEDS ORDERED: PROPOFOL 40 ML ONE (11:23)
[2018-10-23] MEDS ORDERED: PROPOFOL 20 ML ONE (12:18)
--- NOTE | 2018-10-23 12:21 | PAC ---
Date/Time of Note Date/Time of Note DATE: 10/23/18 TIME: 12:19 Post-Anesthesia Notes Post-Anesthesia Note Activity: WNL Respiratory function: WNL Cardiovascular function: WNL Mental status: Baseline Pain reasonably controlled: Yes Hydration appropriate: Yes Nausea/Vomiting absent: Yes Comments BP: 104/55 HR: 99 RR: 15 T: 98 SaO2: 98% GRIFFIN VALDES MD Oct 23, 2018 12:21
[2018-10-23] MEDS ORDERED: ONDANSETRON 4 MG INJ IV PRN (12:30)
== END 2018-10-23 12:57 | disposition home or self-care (01) ==
LOC: GIL 08:50
PROVIDERS: ATTEND Internal Medicine Gastroenterology
DX: R19.7 Diarrhea, unspecified (principal); K64.9 Unspecified hemorrhoids; K57.31 Diverticulosis of large intestine without perforation or abscess with bleeding
CPT/HCPCS: 88305